=== PATIENT | male | born 1975 | race Caucasian/White ===

== ENCOUNTER 2017-09-29 07:04 | Emergency (ER) | payer OTHER ==
[~2017-09-29] VITALS: Ht 182.9 cm; Wt 90.7 kg
[2017-09-29] MEDS ORDERED: Augmentin 875-1 EACH PO (08:09)
== END 2017-09-29 08:29 | disposition home or self-care (01) ==
LOC: ER 07:04
DX: L03.011 Cellulitis of right finger (principal)
CPT/HCPCS: 29130; 90471; 90714; 99283

== ENCOUNTER → 2022-05-10 | Outpatient (CLI) | payer OTHER ==
[~2022-05-10] MED LIST: Augmentin 875-1 EACH PO
[2022-05-10 12:57] LABS: SARS-Cov-2 (COVID-19) PCR, MMC NEGATIVE (NEGATIVE)
== END | disposition home or self-care (01) ==
LOC: LAB PR 11:51
PROVIDERS: Internal Medicine Gastroenterology
DX: Z20.822 Contact with and (suspected) exposure to COVID-19 (principal)
CPT/HCPCS: U0004